=== PATIENT | male | born 1980 | race Caucasian/White ===

== ENCOUNTER 2023-08-07 11:05 | Emergency (ER) | payer OTHER, SELFPAY ==
[2023-08-07 11:07] VITALS: BP 139/94; PULSE 79; RESP 18; TEMP 36.1; O2SAT 98; BMI 32.5
--- NOTE | 2023-08-07 12:02 | RAD_ITS ---
EXAM: XR LUMBOSACRAL SPINE, 2 OR 3 VIEWS CLINICAL INDICATION: pain TECHNIQUE: Frontal and lateral views of the lumbar spine and sacrum. COMPARISON: No relevant prior studies available. FINDINGS: VERTEBRAE: Mild multilevel endplate osteophytosis and facet arthrosis. Subtle apex left curvature of the lumbar spine may be in part positional. No fracture or traumatic subluxation. No spondylolysis or spondylolisthesis. DISC SPACES: Multilevel intervertebral disc height loss, worst at L4-L5 and L5-S1 where there is also vacuum phenomenon at L5-S1. GASTROINTESTINAL TRACT: Normal as visualized. Included bowel gas pattern is non-obstructive. RAD/Lumbar Spine 2 or 3 Views IMPRESSION: Multilevel degenerative changes worse at L4-5 and L5-S1. No acute osseous findings. Electronically Signed: David Zhang DO at 12:32 EDT ,
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
--- NOTE | 2023-08-07 12:02 | RAD_ITS ---
EXAM: XR LEFT SHOULDER COMPLETE, 2 OR MORE VIEWS CLINICAL INDICATION: injury pain. TECHNIQUE: Two or more views of the left shoulder. COMPARISON: No relevant prior studies available. FINDINGS: BONES/JOINTS: Mild glenohumeral joint arthrosis. No acute fracture. No subluxation. Normal alignment. No sclerotic or destructive changes observed. SOFT TISSUES: No significant abnormality. No soft tissue swelling or gas. No radiopaque foreign body. RAD/Shoulder min 2 Views IMPRESSION: Mild glenohumeral joint arthrosis. No acute osseous abnormalities. Electronically Signed: David Zhang DO at 12:31 EDT ,
[2023-08-07 13:34] VITALS: BP 134/75; PULSE 64; RESP 14; TEMP 36.9; O2SAT 98
== END 2023-08-07 13:34 | disposition home or self-care (01) ==
PROVIDERS: Emergency Provider Emergency Medicine; Visit Provider Emergency Medicine
DX: S39.012A Strain of muscle, fascia and tendon of lower back, initial encounter (principal); S46.912A Strain of unspecified muscle, fascia and tendon at shoulder and upper arm level, left arm, initial encounter; V53.5XXA Driver of pick-up truck or van injured in collision with car, pick-up truck or van in traffic accident, initial encounter
CPT/HCPCS: 72100; 73030; 99284